=== PATIENT | female | born 1995 | race Caucasian/White ===

== ENCOUNTER 2016-05-06 05:39 | Emergency (ER) | payer OTHER ==
--- NOTE | 2016-05-06 06:34 | ED NURSING NOTES ---
Clinical Report - Nurses [facility] [address] [place] [address] 05/06/2016 5:42 Patient: JUAN PEÑA TRIAGE Acuity: LEVEL 4. Chief Complaint: NAUSEA and VOMITING. ( Pt has rapid speech she is re direct able). --05:52 Duane Dumas R.N. 05:45 05/06/16. BP: 184/102. HR: 56. RR: 18. O2 saturation: 100%. Temp: 98.1 F. --05:52 Duane Dumas R.N. Weight: 79.3 kg. Height/Length: 64 inches. BMI: 30. --05:50 Duane Dumas R.N. Medications LamoTRIgine Oral. --05:48 Duane Dumas R.N. HydrOXYzine HCl Oral. --05:48 Duane Dumas R.N. Propranolol HCl ER Oral. --05:58 Duane Dumas R.N. Allergies Penicillins. --05:49 Duane Dumas R.N. History ( Pt states she is very stressed and when she gets stressed she gets sick. She says she woke at 430 and threw up.). This started today. SOCIAL HX: Heavy tobacco smoker. Alcohol use; consumes liquor occasionally. Patient smells of ETOH in the emergency department. History of drug use: methamphetamines. (35 days). --05:52 Duane Dumas R.N. PROBLEMS: Anxiety Reaction. Bipolar Disorder. --05:51 Duane Dumas R.N. Interventions ID and allergy band on patient. To treatment room. --05:52 Duane Dumas R.N. PHYSICAL ASSESSMENT GENERAL / NEURO / PSYCH: Alert. Oriented X 4. Appears in no acute distress. RESPIRATORY: Respirations not labored. Breath sounds within normal limits. CVS: Capillary refill less than 2 seconds. GI / : Emesis noted. Abdomen soft and nontender. Bowel sounds within normal limits. SKIN: Skin is warm and dry. --05:52 Duane Dumas R.N. ( pt ambulated to bathroom steady on her feet. Pt states she thinks she may have taken an extra dose of propanolol.). --06:08 Duane Dumas R.N. NURSING PROGRESS NOTES 05:52 05/06/2016 Zofran ODT (Ondansetron) PO Oral Disintegrating Tablets 4 mg given. Allergies verified and confirmed 5 rights. --05:52 Dagoberto Michel R.N. Monitoring of patient in place. Patient gowned. ( Pt states she has a SAPP, pt is concerned about all the stress in her life would like to increase her propanolol dose). --05:54 Duane Dumas R.N. 06:35 05/06/2016 Toradol (Ketorolac Tromethamine) IM 60 mg given. Given in the right anterior lateral thigh. Allergies verified and confirmed 5 rights. --06:36 Duane Dumas R.N. DISPOSITION / DISCHARGE Departure time: 0638. Condition at departure: improved. Discharge instructions provided and reviewed with the patient. Reviewed medication(s) information. Prescription(s) given to the patient. Patient verbalized understanding. Written instructions provided in Algerian. The patient was discharged by the physician. She was discharged home and accompanied by family. ( Pt ambulated on discharge steady on her feet verbalized understanding of discharge instructions and follow up). --06:43 Duane Dumas R.N. 06:39 05/06/16. BP: 185/101. HR: 49. RR: 18. O2 saturation: 100%. Temp: 98.2 F. Pain level now 10. --06:43 Duane Dumas R.N. Locked/Released at 05/10/2016 0:56 by Duane Dumas R.N.
--- NOTE | 2016-05-06 06:34 | ED CLINICAL REPORT ---
Clinical Report - Physicians/Mid Levels [facility] [address] [place] [address] 05/06/2016 5:42 Patient: JUAN PEÑA Time Seen: 06:13. Arrived- By private vehicle. Historian- patient. HISTORY OF PRESENT ILLNESS Chief Complaint: VOMITING. This started at about 0430, but nausea started yesterday evening and is still present but is improving. No recent travel. She has had nausea and vomiting. The vomiting has occurred several times. She has had diarrhea (Pt states she has had diarrhea for about a week.). No black stools, bloody stools, abdominal pain, constipation or flank pain. No history of possible bad food exposure, known contact with a sick individual or change in routine. Has not recently been camping or on antibiotics. The illness is described as moderate. (Pt states she has been under a lot of stress lately, and states that when she is stressed out or anxious, she tends to have vomiting and loose stools. Pt does admit to having 2 liquor drinks last night, but states that amount of alcohol usually does not cause her to get sick.). Similar symptoms previously: Recent medical care: Not recently seen/assessed. REVIEW OF SYSTEMS No fever, muscle aches, difficulty with urination, dark urine or headache. No dizziness, sore throat, cough, chest pain or difficulty breathing. No excessive urination, skin rash, jaundice, back pain or fainting episodes. No blurred vision. Denies current . All systems otherwise negative, except as recorded above. PAST HISTORY Problems: Anxiety Reaction. Bipolar Disorder. Additional Surgeries: no known surgeries. Medications: Propranolol HCl ER Oral. HydrOXYzine HCl Oral. LamoTRIgine Oral. Allergies: Penicillins. SOCIAL HISTORY Smoker- current status unknown. Alcohol use. History of drug use: methamphetamines. ADDITIONAL NOTES The nursing notes have been reviewed. PHYSICAL EXAM Vital Signs: 05/06/2016 05:45 BP: 184/102. HR: 56. RR: 18. O2 saturation: 100%. Temp: 98.1 F. Have been reviewed. Appearance: Alert. Oriented X3. No acute distress. Eyes: Pupils equal, round and reactive to light. Eyes normal inspection. ENT: Nose normal. Neck: Normal inspection. CVS: Normal heart rate and rhythm. Heart sounds normal. Pulses normal. Respiratory: No respiratory distress. Breath sounds normal. Abdomen: Soft. Mild tenderness diffusely. No guarding or rebound tenderness. Back: Normal inspection. No CVA tenderness. Skin: Skin warm and dry. Normal skin color. No rash. Normal skin turgor. Extremities: Extremities exhibit normal ROM. No lower extremity edema. Neuro: Oriented X 3. No motor deficit. No sensory deficit. LABS, X-RAYS, AND EKG Laboratory Tests: UA-Culture if indicated: (RUDDY: 05/06/2016 06:02) ( MsgRcvd 05/06/2016 06:45) Final results Test Result Flag Units (Reference) URINE COLOR YELLOW URINE APPEARANCE CLEAR URINE GLUCOSE NEGATIVE (NEGATIVE) URINE BILIRUBIN NEGATIVE (NEGATIVE) URINE KETONE NEGATIVE (NEGATIVE) URINE SPECIFIC GRAVITY 1.020 (1.010-1.030) URINE PH 7.0 (5.0-8.0) URINE PROTEIN NEGATIVE (NEGATIVE) URINE UROBILINOGEN 0.2 EU/dL (0.2-1.0) URINE NITRITE NEGATIVE (NEGATIVE) URINE BLOOD NEGATIVE (NEGATIVE) URINE LEUK ESTERASE NEGATIVE (NEGATIVE) URINE RBC RARE rbc/hpf (0-1) URINE WBC 0-1 wbc/hpf (0-1) URINE EPITHELIAL CELLS 0-1 EPI/hpf (0-5) URINE BACTERIA NONE SEEN (NONE SEEN) URINE COMMENT CULT NOT INDICATED URINE CULTURES ARE SET-UP BASED ON THE FOLLOWING CRITERIA:POSITIVE NITRITEPOSITIVE LEUKOCYTE ESTERASEGREATER THAN 10 WHITE BLOOD CELLSMODERATE (2+) OR GREATER BACTERIA . Pulse Oximetry: 05/06/2016 05:45 O2 saturation: 100%. (FIO2 - room air). Interpretation: normal. PROGRESS AND PROCEDURES Course of Care: PT was given a dose of ODT Zofran for her nausea, and reported improvement. She requested something for headache, and was given a dose of Toradol. No emergent condition was identified. Pt states she will see her PCP about her usual meds. Patient and friend counseled in person regarding the patient's stable condition, test results, diagnosis and need for follow-up. Concerns were addressed. Old medical records reviewed. Disposition: Discharged. Condition: stable and improved. CLINICAL IMPRESSION Vomiting with nausea. Diarrhea Acute tension headache. Anxiety reaction. INSTRUCTIONS Do not work today. Drink plenty of fluids. Warnings: GENERAL WARNINGS: Return or contact your physician immediately if your condition worsens or changes unexpectedly, if not improving as expected, or if other problems arise. Your Current Medications: CONTINUE TAKING THE FOLLOWING MEDICATIONS: HydrOXYzine HCl Oral. LamoTRIgine Oral. Propranolol HCl ER Oral. Prescription Medications: Zofran (orally disintegrating tablets) 4 mg: take 1-2 orally every 6 hours as needed for nausea. Dispense twenty (20). No refill. Substitution is permissible. Naproxen 500 mg: take 1 orally every 12 hours as needed for pain. Dispense twenty (20). No refills. Follow-up: Follow up with your doctor. Call for the next available appointment. Reason for referral: discuss medications. Understanding of the discharge instructions verbalized by patient. (Electronically signed by Jamila Colin MD 05/07/2016 21:52)
--- NOTE | 2016-05-06 06:34 | ED ORDER SUMMARY ---
..... Patient: JUAN PEÑA OrderSheet [facility] VisitID: [id number] [address] [place] [address] 21y, F Registration Date/Time: 05/06/2016 ORDER SHEET Weight: 79.3 kg Allergies: Penicillins GENERAL ORDERS: UA-Culture if indicated Urgent (06:26 05/06/2016 Samantha MagallonNAlok verbal order read back to [place] RODRÍGUEZ) (Sent 6:26 Samantha R.N.) (6:26 Samantha R.N.) MEDICATION ORDERS: Zofran ODT PO 4 mg (NOW) (05:51 05/06/2016 Samantha Malave verbal order read back to [place] RODR[place]GUE[place]) (5:52 Samantha R.N.) Toradol IM 60 mg (NOW) (06:27 05/06/2016 [place] RODR[place]GUE[place]) (6:36 Elsa R.N.) IV FLUIDS: ORDER SHEET NOTES: [Electronically signed by Jamila Colin MD (21:52 05/07/2016)] [Electronically signed by Duane Dumas R.N. (00:56 05/10/2016)] [Electronically locked/signed by Duane Dumas R.N. (00:56 05/10/2016)]
--- NOTE | 2016-05-06 06:34 | ED ORDER SUMMARY ---
..... Patient: JUAN PEÑA OrderSheet [facility] VisitID: [id number] [address] [place] [address] 21y, F Registration Date/Time: 05/06/2016 ORDER SHEET Weight: 79.3 kg Allergies: Penicillins GENERAL ORDERS: UA-Culture if indicated Urgent (06:26 05/06/2016 Samantha MagallonNAlok verbal order read back to [place]) (Sent 6:26 Samantha R.N.) (6:26 Samantha R.N.) MEDICATION ORDERS: Zofran ODT PO 4 mg (NOW) (05:51 05/06/2016 Samantha Malave verbal order read back to [place]) (5:52 Samantha R.N.) Toradol IM 60 mg (NOW) (06:27 05/06/2016 [place] ROD[place]) (6:36 Elsa R.N.) IV FLUIDS: ORDER SHEET NOTES: [Electronically signed by Jamila Colin MD (21:52 05/07/2016)] [Electronically signed by Duane Dumas R.N. (00:56 05/10/2016)] [Electronically locked/signed by Duane Dumas R.N. (00:56 05/10/2016)]
--- NOTE | 2016-05-10 00:57 | ED MED RECONCILIATION SUMMARY ---
Patient: JUAN PEÑA Medication Reconciliation Report [facility] VisitID: [id number] [address] [place] [address] 21y, F Registration Date/Time: 05/06/2016 Weight: 79.3 kg Height/Length: 64 in. BMI: 30.0 ALLERGIES: Penicillins The patient's Home Medications are listed below: CONTINUE TAKING THE FOLLOWING MEDICATIONS: HydrOXYzine HCl Oral LamoTRIgine Oral Propranolol HCl ER Oral The source(s) of the original Home Medication information: Not obtained. The following Medications were given to the patient in the Emergency Department: Zofran ODT [PO] PO 4 mg, administered: 05/06/2016 5:52:00 AM Toradol [IM] IM 60 mg, administered: 05/06/2016 6:35:00 AM The following Medications were prescribed to the patient: Zofran (orally disintegrating tablets) 4 mg: take 1-2 orally every 6 hours as needed for nausea. Dispense twenty (20). No refill. Substitution is permissible. -- Jamila Colin MD Naproxen 500 mg: take 1 orally every 12 hours as needed for pain. Dispense twenty (20). No refills. -- Jamila Colin MD
--- NOTE | 2016-05-10 00:57 | ED MAR SUMMARY ---
..... Medication Administration Record [facility] [address] [place] [address] Patient: JUAN PEÑA Visit ID: [id number] 21y, F Weight: 79.3 kg Height/Length: 64 in BMI: 30 ALLERGIES: Penicillins Given 05:52 05/06/2016 Dagoberto Michel, RAlokNAlok Medication Administered: ZOFRAN ODT [PO] (ONDANSETRON), Dose: 4 mg Oral Disintegrating Tablets PO. Medication Ordered: Zofran ODT PO 4 mg (NOW). Given 06:35 05/06/2016 Duane Dumas, R.N. Medication Administered: TORADOL [IM] (KETOROLAC TROMETHAMINE), Dose: 60 mg IM. Medication Ordered: Toradol IM 60 mg (NOW).
--- NOTE | 2016-05-10 00:57 | ED MAR SUMMARY ---
..... Medication Administration Record [facility] [address] [place] [address] Patient: JUAN PEÑA Visit ID: [id number] 21y, F Weight: 79.3 kg Height/Length: 64 in BMI: 30 ALLERGIES: Penicillins Given 05:52 05/06/2016 Dagoberto Michel, RAlokNAlok Medication Administered: ZOFRAN ODT [PO] (ONDANSETRON), Dose: 4 mg Oral Disintegrating Tablets PO. Medication Ordered: Zofran ODT PO 4 mg (NOW). Given 06:35 05/06/2016 Duane Dumas, R.N. Medication Administered: TORADOL [IM] (KETOROLAC TROMETHAMINE), Dose: 60 mg IM. Medication Ordered: Toradol IM 60 mg (NOW).
--- NOTE | 2016-05-10 00:57 | ED MED RECONCILIATION SUMMARY ---
Patient: JUAN PEÑA Medication Reconciliation Report [facility] VisitID: [id number] [address] [place] [address] 21y, F Registration Date/Time: 05/06/2016 Weight: 79.3 kg Height/Length: 64 in. BMI: 30.0 ALLERGIES: Penicillins The patient's Home Medications are listed below: CONTINUE TAKING THE FOLLOWING MEDICATIONS: HydrOXYzine HCl Oral LamoTRIgine Oral Propranolol HCl ER Oral The source(s) of the original Home Medication information: Not obtained. The following Medications were given to the patient in the Emergency Department: Zofran ODT [PO] PO 4 mg, administered: 05/06/2016 5:52:00 AM Toradol [IM] IM 60 mg, administered: 05/06/2016 6:35:00 AM The following Medications were prescribed to the patient: Zofran (orally disintegrating tablets) 4 mg: take 1-2 orally every 6 hours as needed for nausea. Dispense twenty (20). No refill. Substitution is permissible. -- Jamila Colin MD Naproxen 500 mg: take 1 orally every 12 hours as needed for pain. Dispense twenty (20). No refills. -- Jamila Colin MD
--- NOTE | 2016-05-10 00:57 | ED DISCHARGE INSTRUCTIONS ---
Patient: JUAN PEÑA General Instructions [facility] VisitID: [id number] [place] [address] 21y, F Registration Date/Time: 05/06/2016 Vomiting with nausea. Diarrhea Acute tension headache. Anxiety reaction. INSTRUCTIONS Do not work today. Drink plenty of fluids. Warnings: GENERAL WARNINGS: Return or contact your physician immediately if your condition worsens or changes unexpectedly, if not improving as expected, or if other problems arise. Your Current Medications: CONTINUE TAKING THE FOLLOWING MEDICATIONS: HydrOXYzine HCl Oral. LamoTRIgine Oral. Propranolol HCl ER Oral. Prescription Medications: Zofran (orally disintegrating tablets) 4 mg: take 1-2 orally every 6 hours as needed for nausea. Dispense twenty (20). No refill. Substitution is permissible. Naproxen 500 mg: take 1 orally every 12 hours as needed for pain. Dispense twenty (20). No refills. Follow-up: Follow up with your doctor. Call for the next available appointment. Reason for referral: discuss medications. Understanding of the discharge instructions verbalized by patient. ADDITIONAL INFORMATION Vomiting [6Yr-Adult] Vomiting is a common symptom that may be due to different causes. These include gastroenteritis ("stomach flu"), food poisoning and gastritis. There are other more serious causes of vomiting which may be hard to diagnose early in the illness. Therefore, it is important to watch for the warning signs listed below. The main danger from repeated vomiting is dehydration. This is due to excess loss of water and minerals from the body. When this occurs, body fluids must be replaced. Home Care: If symptoms are severe, rest at home for the next 24 hours. You may use acetaminophen (Tylenol) or ibuprofen (Motrin, Advil) to control fever, unless another medicine was prescribed. [NOTE : If you have chronic liver or kidney disease or ever had a stomach ulcer or GI bleeding, talk with your doctor before using these medicines.] (Aspirin should never be used in anyone under 18 years of age who is ill with a fever. It may cause severe liver damage.) Avoid tobacco and alcohol use, which may worsen your symptoms. If medicines for vomiting were prescribed, take as directed. Once vomiting stops, then follow these guidelines: During The First 12-24 Hours follow the diet below: FRUIT JUICES: Apple, grape juice, clear fruit drinks, and electrolyte replacement drinks. BEVERAGES: Soft drinks without caffeine; mineral water (plain or flavored), decaffeinated tea and coffee. SOUPS: Clear broth, consomm and bouillon DESSERTS: Plain gelatin, popsicles and fruit juice bars. As you feel better, you may add 6-8 ounces of yogurt per day. During The Next 24 Hours you may add the following to the above: Hot cereal, plain toast, bread, rolls, crackers Plain noodles, rice, mashed potatoes, chicken noodle or rice soup Unsweetened canned fruit (avoid pineapple), bananas Limit caffeine and chocolate. No spices or seasonings except salt. During The Next 24 Hours Gradually resume a normal diet, as you feel better and your symptoms lessen. Follow Up with your doctor as advised if you are not improving over the next 2-3 days. Get Prompt Medical Attention if any of the following occur: Constant right-sided lower abdominal pain or increasing general abdominal pain Continued vomiting (unable to keep liquids down) for 24 hours Frequent diarrhea (more than 5 times a day); blood (red or black color) or mucus in diarrhea Reduced urine output or extreme thirst Weakness, dizziness or fainting Unusually drowsy or confused Fever of 100.4F (38C) oral or higher, not better with fever medication Yellow color of the eyes or skin Diarrhea, Uncertain Cause (Adult, Report Pending) Diarrhea has several possible causes. Commonstomach fluis caused by a virus. Food poisoning, bacteria or parasites are other causes for diarrhea. Only diarrhea caused by bacteria or parasites requires treatment with an antibiotic. Diarrhea from a virus or food poisoning improves with simple home treatment. A stool sample is needed to make the diagnosis of an infection with bacteria or parasites. Up to three stool specimens may be required to diagnose This may take up to two days to get the result. It may be necessary to wait until the stool test is complete to make the diagnosis and select the best antibiotic to prescribe. Home Care: If symptoms are severe, rest at home for the next 24 hours or until you are feeling better. You may use acetaminophen (Tylenol) or ibuprofen (Motrin, Advil) to control fever, unless another medicine was prescribed. [NOTE: If you have chronic liver or kidney disease or ever had a stomach ulcer or GI bleeding, talk with your doctor before using these medicines.] (Aspirin should never be used in anyone under 18 years of age who is ill with a fever. It may cause severe liver damage.) Avoid tobacco, caffeine and alcohol, which may worsen your symptoms. If anti-diarrhea medicine was prescribed, take this only as directed. Sometimes anti-diarrhea medicine can make your condition worse if the cause is an infectious diarrhea. Therefore, anti-diarrhea medicine should not be taken for this condition unless advised by your doctor. During The First 12-24 Hours follow the diet below: BEVERAGES: Sport drinks like Gatorade, soft drinks without caffeine; tremayne birdie, mineral water (plain or flavored), decaffeinated tea and coffee. SOUPS: Clear broth, consomm and bouillon DESSERTS: Plain gelatin (Jell-O), popsicles and fruit juice bars. During The Next 24 Hours you may add the following to the above: Hot cereal, plain toast, bread, rolls, crackers Plain noodles, rice, mashed potatoes, chicken noodle or rice soup Unsweetened canned fruit (avoid pineapple), bananas Limit fat intake to less than 15 grams per day by avoiding margarine, butter, oils, mayonnaise, sauces, gravies, fried foods, peanut butter, meat, poultry and fish. Limit fiber; avoid raw or cooked vegetables, fresh fruits (except bananas) and bran cereals. Limit caffeine and chocolate. No spices or seasonings except salt. During The Next 24 Hours Gradually resume a normal diet, as you feel better and your symptoms lessen. Follow Up with your doctor or as advised if you are not improving over the next two days. If you were asked to bring a specimen from home, bring the sample on the day of collection. You may call in 2 days (or as directed) for the results. Get Prompt Medical Attention if any of the following occur: Increasing abdominal pain or constant lower right abdominal pain Continued vomiting (unable to keep liquids down) Frequent diarrhea (more than 5 times a day) Blood in vomit or stool (black or red color) Reduced oral intake Dark urine, reduced urine output Weakness, dizziness, fainting Drowsiness, confusion, stiff neck or seizure Fever of 100.4F (38C) oral or higher, not better with fever medication New rash Stress Reaction Anxiety is the feeling we all get when we think something bad might happen. It is a normal response to stress and usually causes only a mild reaction. When anxiety becomes more severe, emotions may interfere with daily life. In some cases, you may not even be aware of what it is youre anxious about! During an anxiety reaction, you may feel like you are helpless, nervous, depressed or irritable. Your body may show signs of anxiety in many ways. You may experience dry mouth, shakiness, dizziness, weakness, trouble breathing, chest pressure, headache, nausea, diarrhea, tiredness, inability to sleep or sexual problems. Home Care: 1) Try to locate the sources of stress in your life. They may not be obvious! These may include: -- Daily hassles of life which pile up (traffic jams, missed appointments, car troubles, etc.) -- Major life changes, both good (new baby, job promotion) and bad (loss of job, loss of loved one) -- Overload: feeling that you have too many responsibilities and can't take care of all of them at once -- Feeling helpless, feeling that your problems are beyond what youre able to solve 2) Notice how your body reacts to stress. Learn to listen to your body signals. This will help you take action before the stress becomes severe. 3) When you can, do something about the source of your stress. (Avoid hassles, limit the amount of change that happens in your life at one time and take a break when you feel overloaded). 4) Unfortunately, many stressful situations cannot be avoided. It is necessary to learn HOW TO MANAGE STRESS better. There are many proven methods that will reduce your anxiety. These include simple things like exercise, good nutrition and adequate rest. Also, there are certain techniques that are helpful: relaxation and breathing exercises, visualization, biofeedback and meditation. For more information about this, consult your doctor or go to a local bookstore and review the many books and tapes available on this subject. Follow Up If you feel that your anxiety is not responding to self-help measures, contact your doctor or make an appointment with a counselor. Get Prompt Medical Attention if any of the following occur: -- Your symptoms get worse -- Chest pain or trouble breathing -- Severe headache not relieved by rest and mild pain reliever -- Rapid or irregular heartbeat, fainting Headache [Unspecified] The cause of your headache today is not clear, but it does not appear to be the sign of any serious illness. Under stress, some people tense the muscles of their shoulder, neck and scalp without knowing it. If this condition lasts long enough, a TENSION HEADACHE can occur. A MIGRAINE HEADACHE is caused by changes in blood flow to the brain. A migraine attack may be triggered by emotional stress, hormone changes during the menstrual cycle, oral contraceptives, alcohol use, certain foods containing tyramine, eye strain, weather changes, missing meals, lack of sleep or oversleeping. Other causes of headache include a viral illness with high fever, head injury with concussion, sinus, ear or throat infection, dental pain and TMJ (jaw joint) pain. More serious but less common causes of headache include stroke, brain hemorrhage, brain tumor, meningitis and encephalitis. Home Care: If you were given pain medicine for this headache, do not drive yourself home. Arrange for a ride, instead. When you get home, try to sleep. You should feel much better when you wake up. Apply heat to the back of your neck to relieve neck muscle spasm. Migraine headaches may respond best to an ice pack on the forehead or at the base of the skull. If you are having nausea or vomiting, follow a light diet until your headache is relieved. If you have a migraine type headache, use sunglasses when in the daylight or around bright indoor lighting until symptoms improve. Bright glaring light can worsen this kind of headache. Follow Up with your doctor if the headache is not better within the next 24 hours. If you have frequent headaches you should discuss a treatment plan with your primary care doctor. By being aware of the earliest signs of headache, and starting treatment right away, you may be able to stop the pain yourself. Get Prompt Medical Attention if any of the following occur: Worsening of your head pain or no improvement within 24 hours Repeated vomiting (unable to keep liquids down) Fever of 100.4F (38C) or higher, or as directed by your healthcare provider Stiff neck Extreme drowsiness, confusion or fainting Dizziness, vertigo (dizziness with spinning sensation) Weakness of an arm or leg or one side of the face Difficulty with speech or vision You have been given the following additional information: Vomiting (6Y-Adult) Diarrhea, Unk Cause (Adult) Report Pendg Anxiety Reaction Headache, Unspecified Do not work today. (Electronically signed by Jamila Colin MD 05/07/2016 21:52)
== END 2016-05-06 06:38 | disposition home or self-care (01) ==
LOC: ED SRH 05:39
DX: R11.2 Nausea with vomiting, unspecified (principal); R19.7 Diarrhea, unspecified; G44.209 Tension-type headache, unspecified, not intractable; F41.1 Generalized anxiety disorder; Z88.0 Allergy status to penicillin; F17.200 Nicotine dependence, unspecified, uncomplicated; Z79.899 Other long term (current) drug therapy
CPT/HCPCS: 90004